=== PATIENT | male | born 1975 | race Caucasian/White ===

== ENCOUNTER 2021-11-08 18:48 | Emergency (ER) | payer SELFPAY ==
[2021-11-08 19:42] VITALS: BP 116/80; TEMP 98.4; BMI 29.2
[2021-11-08] MEDS ORDERED: MAG HYDROX/AL HYDROX/SIMETH 30 ML UNIT-DOSE CUP PO ONE (22:09)
[2021-11-08] MEDS ORDERED: DICYCLOMINE HCL 20 MG TABLET PO ONE (22:09)
[2021-11-08] MEDS ORDERED: MAG HYDROX/AL HYDROX/SIMETH 30 ML UNIT-DOSE CUP ONE (22:24)
[2021-11-08] MEDS ORDERED: DICYCLOMINE HCL 10 MG CAPSULE ONE ×2 (22:24→22:25)
[2021-11-09 00:43] VITALS: PULSE 91
== END 2021-11-09 00:43 | disposition home or self-care (01) ==
LOC: JER 18:48
DX: K29.70 Gastritis, unspecified, without bleeding (principal)
CPT/HCPCS: 93005; 93010; 99283-25